=== PATIENT | female | born 1965 | race African-American/Black ===

== ENCOUNTER 2019-04-12 10:58 | Inpatient (IN) ==
[2019-04-12 11:34] LABS: Basophils # 0.1 10*3/uL (0.0-0.2); Basophils % 0.4 % (0.0-0.8); Eosinophils # 0.1 10*3/uL (0.0-0.87); Eosinophils % 0.5 % (0.00-10.9); Hematocrit 44.2 VOL% (35.7-47.0); Hemoglobin 13.9 GM/DL (12.0-16.0); Immature Granulocytes % 0.4 %; Immature Granulocytes Absolute 0.06 #; Lymphocytes # 1.7 10*3/uL (1.4-4.0); Lymphocytes % 11.6 % (21.3-54.2); Mean Corpuscular HGB Conc 31.4 GM/DL (32-36); Mean Corpuscular Volume 82.2 FL (87-102); Mean Platelet Volume 11.3 FL (9.6-12.0); Monocytes % 5.8 % (1.7-12.7); Neutrophils % 81.3 % (38.7-73.9); Platelet Count 247 T/CUMM (130-400); Red Blood Count 5.38 MC/CUMM (3.8-5.5); Red Cell Distribution Width 14.1 % (9.3-17.3); White Blood Count 14.9 T/CUMM (4-12)
[2019-04-12 11:44] LABS: PT Patient Result 10.5 SECS (9.6-12.2)
[2019-04-12 11:46] LABS: Albumin 3.7 G/DL (3.4-5.0); Bilirubin,Total 0.7 MG/DL (0.2-1.0); Calcium 9.9 MG/DL (8.5-10.1); Osmolality,Calculated 276.8 MOS/KG (273-304)
[2019-04-12] MEDS ORDERED: HEPARIN 1,000 UNIT/1 ML VIAL IV STA (12:10)
[2019-04-12] MEDS ORDERED: HEPARIN 5,000 UNIT/1 ML VIAL IV STA (12:14)
[2019-04-12] MEDS ORDERED: HEPARIN 5,000 UNIT/1 ML VIAL ONE (12:15)
[2019-04-12] MEDS ORDERED: HEPARIN DRIP 25,000 UNITS/500 ML PREMIX IV SCH ×3 (12:30→16:30)
[2019-04-12] MEDS ORDERED: MORPHINE 4 MG/1 ML VIAL IV PRN (12:38)
[2019-04-12] MEDS ORDERED: MAGNESIUM SULF RIDER 4 GM in PREMIX 1 EACH IV PRN (12:38)
[2019-04-12] MEDS ORDERED: SIMETHICONE CHEW 125 MG TABLET PO PRN (12:38)
[2019-04-12] MEDS ORDERED: LACTULOSE 20 GM/30 ML UDCUP PO PRN (12:38)
[2019-04-12] MEDS ORDERED: diphenhydrAMINE CAP 25 MG CAPSULE PO PRN (12:38)
[2019-04-12] MEDS ORDERED: BISACODYL 5 MG TABLET PO PRN (12:38)
[2019-04-12] MEDS ORDERED: MAGNESIUM SULF RIDER 2 GM in PREMIX 1 EACH IV PRN (12:38)
[2019-04-12] MEDS ORDERED: ZALEPLON 5 MG CAPSULE PO PRN (12:38)
[2019-04-12] MEDS ORDERED: hydrALAZINE 20 MG/1 ML VIAL IV PRN (12:38)
[2019-04-12] MEDS ORDERED: guaiFENesin/DM ER 600-30 MG TABLET PO PRN (12:38)
[2019-04-12] MEDS ORDERED: CALCIUM CARBONATE CHEW 500 MG TABLET PO PRN (12:38)
[2019-04-12] MEDS ORDERED: ONDANSETRON 4 MG/2 ML VIAL IV PRN (12:38)
[2019-04-12] MEDS ORDERED: ACETAMINOPHEN 325 MG TABLET PO PRN (12:38)
[2019-04-12] MEDS ORDERED: ALUMINUM/MAGNES/SIMETH MAX STR 30 ML UDCUP PO PRN (12:38)
[2019-04-12] MEDS ORDERED: HEPARIN/NACL 0.9% 2 UNITS/ML 500 ML IV ONE (12:44)
[2019-04-12] MEDS ORDERED: LIDOCAINE 1%/EPI INJ 20 ML VIAL ONE (12:44)
[2019-04-12] MEDS ORDERED: SODIUM CHLORIDE 0.9% 1,000 ML IV SCH ×2 (13:00)
[2019-04-12] MEDS ORDERED: ALTEPLASE 6 MG in SODIUM CHLORIDE 0.9% 120 ML IV SCH (13:00)
[2019-04-12] MEDS ORDERED: fentaNYL 100 MCG/2 ML VIAL ONE (13:07)
[2019-04-12] MEDS ORDERED: MIDAZOLAM 2 MG/2 ML VIAL ONE (13:11)
[2019-04-12] MEDS ORDERED: LORazepam 2 MG/1 ML VIAL IV PRN (13:45)
[2019-04-12] MEDS ORDERED: HEPARIN DRIP 0 UNITS/0 ML PREMIX IV ONE (14:14)
[2019-04-12 15:10] LABS: PT Patient Result 10.4 SECS (9.6-12.2); Partial Thromboplastin Time 33.1 SECS (20.8-36.0)
[2019-04-12 15:32] LABS: Troponin I 0.802 NG/ML (0.00-0.045)
[2019-04-12] MEDS ORDERED: METOPROLOL TARTRATE 5 MG/5 ML VIAL IV ONE (16:21)
[2019-04-12] MEDS: POTASSIUM CHLORIDE 20 MEQ TABLET PO PRN ×3 (17:31→22:37)
[2019-04-12 17:34] LABS: Troponin I 0.714 NG/ML (0.00-0.045)
[2019-04-12 18:08] LABS: Apearance,Urine CLEAR (Clear); Bilirubin,Urine Negative (Negative); Blood, Urine Small mg/dL (Negative); Glucose,Urine (UA) Negative (Negative); Ketones,Urine 20 mg/dL (Negative); Nitrite,Urine Negative (Negative); Protein,Urine Negative; RBC,Urine 1 /HPF (0-4); Squamous Epithelial Cell,Urine Occasional /HPF (0-10); Urine Color Yellow (Yellow); Urine Specific Gravity 1.026 (1.001-1.035); Urine Urobilinogen < 2.0 EU/DL (0.2-1.0); WBC,Urine 1 /HPF (0-6)
[2019-04-13] MEDS: POTASSIUM CHLORIDE 20 MEQ TABLET PO PRN (00:35)
[2019-04-13 01:53] LABS: Partial Thromboplastin Time 36.9 SECS (20.8-36.0)
[2019-04-13 06:13] LABS: Basophils % 0.2 % (0.0-0.8); Hematocrit 39.2 VOL% (35.7-47.0); Hemoglobin 12.4 GM/DL (12.0-16.0); Immature Granulocytes % 0.6 %; Immature Granulocytes Absolute 0.08 #; Lymphocytes # 1.2 10*3/uL (1.4-4.0); Lymphocytes % 8.7 % (21.3-54.2); Mean Corpuscular HGB Conc 31.6 GM/DL (32-36); Mean Corpuscular Volume 81.3 FL (87-102); Mean Platelet Volume 11.1 FL (9.6-12.0); Monocytes % 7.3 % (1.7-12.7); Neutrophils % 83.2 % (38.7-73.9); Platelet Count 207 T/CUMM (130-400); Red Blood Count 4.82 MC/CUMM (3.8-5.5); Red Cell Distribution Width 13.8 % (9.3-17.3); White Blood Count 13.2 T/CUMM (4-12)
[2019-04-13 06:25] LABS: PT Patient Result 10.5 SECS (9.6-12.2)
[2019-04-13 06:34] LABS: Blood Urea Nitrogen 13 MG/DL (7-18); Calcium 9.8 MG/DL (8.5-10.1); Estimated Glom Filtration Rate 142 ML/MIN; Glucose 123 MG/DL (74-106); Osmolality,Calculated 277.5 MOS/KG (273-304)
[2019-04-13 06:37] LABS: Troponin I 0.298 NG/ML (0.00-0.045)
[2019-04-13] MEDS ORDERED: NON-FORMULARY MEDICATION (Omeprazole 40 MG) PO SCH (09:00)
[2019-04-13] MEDS: ASCORBIC ACID 500 MG TABLET PO SCH (09:20)
[2019-04-13] MEDS: RIVAROXABAN 15 MG TABLET PO SCH ×2 (09:20→18:13)
[2019-04-13] MEDS: hydroCHLOROthiazide 25 MG TABLET PO SCH (09:20)
[2019-04-13] MEDS: CALCIUM (CARBONATE) 500 MG TABLET PO SCH (09:20)
[2019-04-13] MEDS: MONTELUKAST 10 MG TABLET PO SCH (09:20)
[2019-04-13] MEDS: ASPIRIN EC 81 MG TABLET PO SCH (09:20)
[2019-04-13] MEDS: PANTOPRAZOLE 40 MG TABLET PO SCH (09:20)
[2019-04-13] MEDS: CHOLECALCIFEROL 1,000 UNIT TABLET PO SCH (09:21)
[2019-04-13] MEDS: SIMVASTATIN 10 MG TABLET PO SCH (09:21)
[2019-04-13 13:50] LABS: Partial Thromboplastin Time 30.2 SECS (20.8-36.0)
[2019-04-14 01:46] LABS: Basophils % 0.3 % (0.0-0.8); Eosinophils # 0.1 10*3/uL (0.0-0.87); Eosinophils % 0.4 % (0.00-10.9); Hematocrit 39.9 VOL% (35.7-47.0); Hemoglobin 12.7 GM/DL (12.0-16.0); Immature Granulocytes % 0.4 %; Immature Granulocytes Absolute 0.06 #; Lymphocytes # 2.4 10*3/uL (1.4-4.0); Lymphocytes % 15.1 % (21.3-54.2); Mean Corpuscular HGB Conc 31.8 GM/DL (32-36); Mean Corpuscular Volume 81.4 FL (87-102); Mean Platelet Volume 11.8 FL (9.6-12.0); Monocytes % 7.5 % (1.7-12.7); Neutrophils % 76.3 % (38.7-73.9); Platelet Count 214 T/CUMM (130-400); White Blood Count 15.8 T/CUMM (4-12)
[2019-04-14 01:55] LABS: Partial Thromboplastin Time 32.3 SECS (20.8-36.0)
[2019-04-14 02:00] LABS: Osmolality,Calculated 275.8 MOS/KG (273-304)
[2019-04-14] MEDS: POTASSIUM CHLORIDE 20 MEQ TABLET PO PRN (02:43)
[2019-04-14] MEDS: ASCORBIC ACID 500 MG TABLET PO SCH (08:34)
[2019-04-14] MEDS: ASPIRIN EC 81 MG TABLET PO SCH (08:34)
[2019-04-14] MEDS: CALCIUM (CARBONATE) 500 MG TABLET PO SCH (08:34)
[2019-04-14] MEDS: RIVAROXABAN 15 MG TABLET PO SCH ×2 (08:34→17:05)
[2019-04-14] MEDS: CHOLECALCIFEROL 1,000 UNIT TABLET PO SCH (08:34)
[2019-04-14] MEDS: hydroCHLOROthiazide 25 MG TABLET PO SCH (08:34)
[2019-04-14] MEDS: MONTELUKAST 10 MG TABLET PO SCH (08:34)
[2019-04-14] MEDS: PANTOPRAZOLE 40 MG TABLET PO SCH (08:34)
[2019-04-14] MEDS: SIMVASTATIN 10 MG TABLET PO SCH (08:34)
[2019-04-14 13:27] LABS: Partial Thromboplastin Time 33.7 SECS (20.8-36.0)
[2019-04-14 16:44] VITALS: BP 100/56
== END 2019-04-14 17:09 | disposition home or self-care (01) | DRG 299 ==
LOC: N.ED 10:58 → N.EDINP 12:38 → N.ICU 14:09 → N.4E 04-13 19:20
PROVIDERS: ADMIT Internal Medicine Interventional Cardiology; ATTEND Internal Medicine Interventional Cardiology